=== PATIENT | male | born 1990 | race Caucasian/White ===

== ENCOUNTER 2017-03-26 01:28 | Emergency (ER) | payer MEDICAID ==
[2012-08-24 17:57] VITALS: BMI 19.5
[2017-03-26 02:07] LABS: BASOPHILS 0.1 % (0-2); EOSINOPHILS 1.7 % (0-7); HEMATOCRIT 37.6 % (42.0-54.0); HEMOGLOBIN 12.8 g/dL (13.5-17.5); IMMATURE GRANULOCYTES 0.2 % (0-5); MCH 29.6 pg (26.0-34.0); MCV 86.8 fL (80.0-100.0); MEAN PLATELET VOLUME 9.6 fL (7.4-10.4); MONOCYTES 12.7 % (2-11); NEUTROPHILS 71.3 % (40-80); PLATELET COUNT 334 10x3/uL (130-400); RBC 4.33 10x6/uL (4.20-6.10); RDW 12.6 % (11.5-14.5); WBC 14.4 10x3/uL (4.8-10.8)
[2017-03-26 02:23] LABS: ALBUMIN 3.2 g/dL (3.4-5.0); ALKALINE PHOSPHATASE 86 U/L (46-116); ALT (SGPT) 25 U/L (10-68); CALC OSMOLALITY 272 mosm/kg (275-300); CARBON DIOXIDE 30.9 mmol/L (21.0-32.0); CHLORIDE - SERUM 98 mmol/L (98-107); CREATININE - SERUM 0.8 mg/dL (0.6-1.3); GLUCOSE 105 mg/dL (74-106); POTASSIUM - SERUM 3.1 mmol/L (3.5-5.1); PROTEIN - SERUM 7.3 g/dL (6.4-8.2); SODIUM 137 mmol/L (136-145); UREA NITROGEN 9 mg/dL (7-18); eGFR NON AFRICAN AMERICAN > 90 mL/min (90-120)
[2017-03-26 02:34] LABS: APPEARANCE CLEAR (CLEAR); COLOR YELLOW (YELLOW)
[2017-03-26 02:35] LABS: BILIRUBIN NEGATIVE (NEGATIVE); GLUCOSE NEGATIVE (NEGATIVE); KETONE NEGATIVE (NEGATIVE); LEUKOCYTE ESTERASE NEGATIVE (NEGATIVE); NITRITE NEGATIVE (NEGATIVE); PROTEIN NEGATIVE (NEGATIVE); UROBILINOGEN NORMAL (NORMAL)
[2017-03-26 02:49] LABS: UDS - AMPHET POSITIVE QUAL (NEGATIVE); UDS - BARB NEGATIVE QUAL (NEGATIVE); UDS - BENZO NEGATIVE QUAL (NEGATIVE); UDS - COCAINE NEGATIVE QUAL (NEGATIVE); UDS - METH NEGATIVE QUAL (NEGATIVE); UDS - OPIATE NEGATIVE QUAL (NEGATIVE); UDS - PCP NEGATIVE QUAL (NEGATIVE); UDS - THC POSITIVE QUAL (NEGATIVE)
== END 2017-03-26 03:54 | disposition home or self-care (01) ==
LOC: D.ER 01:28
PROVIDERS: Emergency Medicine
DX: J15.9 Unspecified bacterial pneumonia (principal); F17.200 Nicotine dependence, unspecified, uncomplicated

== ENCOUNTER 2017-07-08 01:01 | Emergency (ER) | payer MEDICAID ==
[2012-08-24 17:57] VITALS: BMI 19.5
[2017-07-08 01:40] LABS: BASOPHILS 0.1 % (0-2); EOSINOPHILS 0.7 % (0-7); HEMATOCRIT 38.1 % (42.0-54.0); HEMOGLOBIN 12.7 g/dL (13.5-17.5); IMMATURE GRANULOCYTES 0.3 % (0-5); LYMPHOCYTES 13.8 % (15-50); MCH 28.9 pg (26.0-34.0); MCHC 33.3 g/dL (31.0-37.0); MCV 86.8 fL (80.0-100.0); MEAN PLATELET VOLUME 9.6 fL (7.4-10.4); MONOCYTES 14.4 % (2-11); NEUTROPHILS 70.7 % (40-80); PLATELET COUNT 272 10x3/uL (130-400); RBC 4.39 10x6/uL (4.20-6.10); RDW 13.1 % (11.5-14.5); WBC 14.8 10x3/uL (4.8-10.8)
[2017-07-08 02:19] LABS: UDS - AMPHET POSITIVE QUAL (NEGATIVE); UDS - BARB NEGATIVE QUAL (NEGATIVE); UDS - BENZO NEGATIVE QUAL (NEGATIVE); UDS - COCAINE NEGATIVE QUAL (NEGATIVE); UDS - METH NEGATIVE QUAL (NEGATIVE); UDS - OPIATE NEGATIVE QUAL (NEGATIVE); UDS - PCP NEGATIVE QUAL (NEGATIVE); UDS - THC POSITIVE QUAL (NEGATIVE)
== END 2017-07-08 02:07 | disposition home or self-care (01) ==
LOC: D.ER 01:01
PROVIDERS: Emergency Medicine
DX: J15.9 Unspecified bacterial pneumonia (principal); F17.200 Nicotine dependence, unspecified, uncomplicated

== ENCOUNTER 2018-01-08 18:32 | Emergency (ER) | payer MEDICAID ==
[2012-08-24 17:57] VITALS: BMI 19.5
[2018-01-08 21:26] LABS: APPEARANCE CLEAR (CLEAR); BILIRUBIN NEGATIVE (NEGATIVE); COLOR YELLOW (YELLOW); GLUCOSE NEGATIVE (NEGATIVE); KETONE SMALL mg/dL (NEGATIVE); NITRITE NEGATIVE (NEGATIVE); PROTEIN NEGATIVE (NEGATIVE); UROBILINOGEN NORMAL (NORMAL)
[2018-01-08 21:30] LABS: UDS - AMPHET POSITIVE QUAL (NEGATIVE); UDS - BARB NEGATIVE QUAL (NEGATIVE); UDS - BENZO NEGATIVE QUAL (NEGATIVE); UDS - COCAINE NEGATIVE QUAL (NEGATIVE); UDS - OPIATE POSITIVE QUAL (NEGATIVE); UDS - PCP NEGATIVE QUAL (NEGATIVE); UDS - THC NEGATIVE QUAL (NEGATIVE)
[2018-01-18] MEDS ORDERED: PERCOCET 5-3251 TAB PO (11:46)
[2018-01-18] MEDS ORDERED: IBUPROFEN800 MG PO (11:46)
== END 2018-01-08 22:15 | disposition home or self-care (01) ==
LOC: D.ER 18:32
PROVIDERS: Physician Assistant Medical
DX: S52.541A Smith's fracture of right radius, initial encounter for closed fracture (principal); Y93.83 Activity, rough housing and horseplay; Y93.89 Activity, other specified; Y92.019 Unspecified place in single-family (private) house as the place of occurrence of the external cause; F17.200 Nicotine dependence, unspecified, uncomplicated

== ENCOUNTER 2018-01-15 23:39 | Emergency (ER) | payer MEDICAID ==
[2012-08-24 17:57] VITALS: BMI 19.5
[2018-01-18] MEDS ORDERED: PERCOCET 5-3251 TAB PO (11:46)
[2018-01-18] MEDS ORDERED: IBUPROFEN800 MG PO (11:46)
[2018-02-13 14:05] VITALS: BMI 20.4
== END 2018-01-16 00:51 | disposition home or self-care (01) ==
LOC: D.ER 23:39
DX: S62.101D Fracture of unspecified carpal bone, right wrist, subsequent encounter for fracture with routine healing (principal); X58.XXXD Exposure to other specified factors, subsequent encounter

== ENCOUNTER 2018-01-26 07:08 | Day surgery (SDC) | payer MEDICAID ==
[~2018-01-26] VITALS: Ht 175.3 cm; Wt 62.6 kg
--- NOTE | ~2018-01-26 | OP ---
PATIENT NAME: JONATHAN NESS MEDICAL RECORD: [id number] :86 LOCATION:D.OPS ADMISSION DATE: SURGEON: RERE COBIAN MD DATE OF OPERATION: 01/26/2018 PREOPERATIVE DIAGNOSES: 1. Volar Ruiz's fracture of the right wrist. 2. Acute carpal tunnel syndrome. POSTOPERATIVE DIAGNOSES: 1. Volar Ruiz's fracture of the right wrist. 2. Acute carpal tunnel syndrome. PROCEDURE: 1. Open reduction and internal fixation of distal radius fracture. 2. Carpal tunnel release. ANESTHESIA: General. INTRAOPERATIVE COMPLICATIONS: None. SUMMARY OF PATHOLOGIC FINDINGS: The patient had a fracture of the volar aspect of his distal radius, which was displaced requiring internal fixation. OPERATIVE SUMMARY IN DETAIL: After obtaining the appropriate preoperative orthopedic surgery consent as well as anesthetic consultation, evaluation, and clearance, the patient was brought to the operating room and placed on the operating table in supine position. After general laryngeal mask was administered, tourniquet was placed on the proximal aspect of the right lower extremity. Right lower extremity was then prepped and draped in routine sterile fashion. The leg was elevated and exsanguinated, tourniquet was inflated to 250 mmHg. Volar approach of Tony was utilized including the mid palmar carpal tunnel approach. Incision was taken down to the flexor carpi radialis and then very careful dissection of the carpal tunnel was carried out under direct visualization of the median nerve to release the median nerve and debride the hematoma in the carpal canal. Having completed this, dissection was carried down to the fracture itself, which was completely visualized. After all hematoma and early fibrous tissue was removed, it was held in a reduced position. Plate was then applied and provisionally pinned under fluoroscopy to be sure that was in appropriate position. Serial and sequential drill and fill using combination of both locking and compression screws were utilized to stabilize the fragment. When this was completed, AP and lateral views were submitted to radiology for final evaluation. Wound was copiously irrigated and closed with 2-0 Vicryl followed 4-0 Prolene in a running fashion. A volar splint was applied. Tourniquet was deflated. The patient was awakened and taken to recovery room in stable condition. All final needle and sponge counts were correct. TRANSINT:[id number] Voice Confirmation ID: [id number] DOCUMENT ID: [id number] OPERATIVE REPORT [id number] JONATHAN NESS MD, RERE RAMIREZ at 1520 CC: [id number] DICTATION DATE: 02/02/18 0844 CAREER DEVELOPMENT MANAGER: 02/02/18 1012 [facility] 01/26/18 [place] [id number] [place] [id number]
[~2018-01-26 07:08] MED LIST: IBUPROFEN800 MG PO; PERCOCET 5-3251 TAB PO
[2018-01-26 07:47] VITALS: BP 123/67; Ht 175.3 cm; Wt 62.6 kg
[2018-01-26] MEDS ORDERED: HYDROCODONE-APA1 TAB PO (12:58)
== END 2018-01-26 13:45 | disposition home or self-care (01) ==
LOC: D.OPS 07:08 → D.PAN 10:30 → D.OPS 13:45
DX: S52.501A Unspecified fracture of the lower end of right radius, initial encounter for closed fracture (principal); F17.200 Nicotine dependence, unspecified, uncomplicated; Y09 Assault by unspecified means

== ENCOUNTER 2018-01-31 01:41 | Emergency (ER) | payer MEDICAID ==
[2018-01-26 07:47] VITALS: BMI 20.4
[~2018-01-31 01:41] MED LIST changes: +HYDROCODONE-APA1 TAB PO
== END 2018-01-31 02:29 | disposition home or self-care (01) ==
LOC: D.ER 01:41
DX: G89.18 Other acute postprocedural pain (principal)

== ENCOUNTER 2018-02-13 12:52 | Day surgery (SDC) | payer MEDICAID ==
[~2018-02-13] VITALS: Ht 175.3 cm; Wt 62.6 kg
--- NOTE | ~2018-02-13 | OP ---
PATIENT NAME: JONATHAN NESS MEDICAL RECORD: [id number] :88 LOCATION:[facility] ADMISSION DATE: SURGEON: RERE COBIAN MD DATE OF OPERATION: 02/13/2018 PREOPERATIVE DIAGNOSIS: Failure of open reduction internal fixation of the right wrist. POSTOPERATIVE DIAGNOSIS: Failure of open reduction internal fixation of the right wrist. PROCEDURE: Revision ORIF of the right wrist. SURGEON: Rere Cobian MD ANESTHESIA: General. INTRAOPERATIVE COMPLICATIONS: Essentially none. SUMMARY OF PATHOLOGIC FINDINGS: The patient although denied any fall, clearly had significant displacement of the internal fixation at his 1st postop appointment. He was brought back for revision surgery today. OPERATIVE SUMMARY IN DETAIL: After obtaining the appropriate orthopedic surgery consent as well as anesthetic consultation, evaluation and clearance, the patient was brought to the operating room and placed in the operating table in supine position. After general laryngeal mask was administered, tourniquet placed on the proximal aspect of the right upper extremity. Right upper extremity was then prepped and draped in routine sterile fashion. The arm was elevated and exsanguinated, tourniquet inflated to 250 mmHg. The previously placed sutures, which had not been removed from the first operation, were taken down. Volar dissection was carried out again without going to the carpal tunnel. FCR was identified as was the median nerve. The plate was readily identifiable and was removed. The fragments had shifted distally and the patient had a substantial volar tilt to the point of a subluxation of the wrist. At this point, all loose hardware had been removed, the fracture was re-reduced and a buttress style plate was put on, that is the volar plate was contoured to give more of a buttress and forced the volar tilt back to a more normal angle. This did not, however, caused the volar tilt to come back to normal angle. A dorsal dissection was therefore carried out. Dissection was carried straight down and very gentle separation of the extensor retinaculum was done. The periosteum was then identified. A small wedge of bone was removed at this point, approximately 7-8 degrees and while the distal screws on the volar aspect of the plate were not on, the wrist was held in a reduced position while a dorsal plate was placed in compression over the bone to hold it together, all done under fluoroscopic guidance. This resulted in reproducing the patient's normal volar tilt and normal seating of the scaphoid and lunate. Having completed this, attention was returned to the volar aspect. Short locking screws were then placed in the volar buttress plate. A small rent in the capsule was then repaired with 2-0 FiberWire. Having completed this, the wounds were all copiously irrigated and closed with 2-0 Vicryl followed by skin elvis. Sterile dressings were applied. The tourniquet was deflated. The patient was awakened, taken to recovery room in stable condition. All final needle and sponge counts were correct. OPERATIVE REPORT [id number] JONATHAN NESS MAGNUS J TRANSINT:[id number] Voice Confirmation ID: [id number] DOCUMENT ID: [id number] ARANZA BUCKNER, RERE RAMIREZ at 1341 CC: [id number] DICTATION DATE: 02/13/182224 GEOLOGICAL DRAFTER: 02/14/18 0838 [facility] 02/14/18 [place] [id number] [place] [id number]
[2018-02-13 14:05] VITALS: BP 117/77; Ht 175.3 cm; Wt 62.6 kg
[2018-02-13 21:24] VITALS: BP 129/95
[2018-02-14 00:40] VITALS: BP 134/84
== END 2018-02-14 03:07 | disposition home or self-care (01) ==
LOC: D.OPS 12:52 → D.MS 20:33 → D.OPS 02-14 03:07
DX: T84.122A Displacement of internal fixation device of bone of right forearm, initial encounter (principal); S63.011A Subluxation of distal radioulnar joint of right wrist, initial encounter; X58.XXXA Exposure to other specified factors, initial encounter

== ENCOUNTER 2019-03-10 10:10 | Emergency (ER) | payer MEDICAID ==
[2019-03-10 10:15] VITALS: BMI 21.1
[2019-03-10] MEDS ORDERED: KEFLEX250 MG PO (10:16)
[2019-03-10] MEDS ORDERED: CLEOCIN HCL300 MG PO (11:28)
[2019-03-10] MEDS ORDERED: OMNICEF250 MG/5 M PO (11:28)
[2019-03-10] MEDS ORDERED: PHENERGAN DM SYR5 ML PO (11:28)
[2019-03-10] MEDS ORDERED: ALBUTEROL SULF8.5 GM INH (11:28)
[2019-03-10 11:33] VITALS: BP 113/73
== END 2019-03-10 11:41 | disposition home or self-care (01) ==
LOC: D.ER 10:10
DX: J18.9 Pneumonia, unspecified organism (principal); R05 Cough

== ENCOUNTER 2019-04-14 22:58 | Emergency (ER) | payer MEDICAID ==
[~2019-04-14] VITALS: Ht 175.3 cm; Wt 64.5 kg
[~2019-04-14 22:58] MED LIST changes: +ALBUTEROL SULF8.5 GM INH; +CLEOCIN HCL300 MG PO; +KEFLEX250 MG PO; +OMNICEF250 MG/5 M PO; +PHENERGAN DM SYR5 ML PO
[2019-04-14 23:04] VITALS: Ht 175.3 cm; Wt 64.5 kg
[2019-04-15 02:01] LABS: UDS - AMPHET POSITIVE QUAL (NEGATIVE); UDS - BARB NEGATIVE QUAL (NEGATIVE); UDS - BENZO NEGATIVE QUAL (NEGATIVE); UDS - COCAINE NEGATIVE QUAL (NEGATIVE); UDS - OPIATE NEGATIVE QUAL (NEGATIVE); UDS - PCP NEGATIVE QUAL (NEGATIVE); UDS - THC POSITIVE QUAL (NEGATIVE)
[2019-04-15 02:30] VITALS: BP 108/62
== END 2019-04-15 02:31 | disposition home or self-care (01) ==
LOC: D.ER 22:58
PROVIDERS: Emergency Medicine
DX: G62.9 Polyneuropathy, unspecified (principal)

== ENCOUNTER 2019-05-21 03:53 | Emergency (ER) | payer MEDICAID ==
[~2019-05-21] VITALS: Ht 175.3 cm; Wt 64.4 kg
[2019-05-21 03:59] VITALS: Ht 175.3 cm; Wt 64.4 kg
[2019-05-21] MEDS ORDERED: KEFLEX500 MG PO (04:05)
[2019-05-21] MEDS ORDERED: ATARAX 25 MG TA25 MG PO (04:05)
[2019-05-21] MEDS ORDERED: CLEOCIN HCL300 MG PO (04:05)
[2019-05-21 04:16] VITALS: BP 132/77
== END 2019-05-21 04:18 | disposition home or self-care (01) ==
LOC: D.ER 03:53
DX: L25.9 Unspecified contact dermatitis, unspecified cause (principal); L03.116 Cellulitis of left lower limb; L03.115 Cellulitis of right lower limb

== ENCOUNTER 2019-05-23 14:17 | Emergency (ER) | payer MEDICAID ==
[~2019-05-23] VITALS: Ht 175.3 cm; Wt 64.5 kg
[~2019-05-23 14:17] MED LIST changes: +ATARAX 25 MG TA25 MG PO; +KEFLEX500 MG PO
[2019-05-23 14:20] VITALS: Ht 175.3 cm; Wt 64.5 kg
[2019-05-23 15:41] LABS: BASOPHILS 0.2 % (0-2); EOSINOPHILS 7.9 % (0-7); HEMATOCRIT 36.1 % (42.0-54.0); HEMOGLOBIN 12.3 g/dL (13.5-17.5); IMMATURE GRANULOCYTES 0.2 % (0-5); LYMPHOCYTES 20.9 % (15-50); MCH 28.5 pg (26.0-34.0); MCHC 34.1 g/dL (31.0-37.0); MCV 83.6 fL (80.0-100.0); MEAN PLATELET VOLUME 9.5 fL (7.4-10.4); MONOCYTES 11.7 % (2-11); NEUTROPHILS 59.1 % (40-80); PLATELET COUNT 282 10x3/uL (130-400); RBC 4.32 10x6/uL (4.20-6.10); WBC 9.4 10x3/uL (4.8-10.8)
[2019-05-23 15:58] LABS: ALBUMIN 2.9 g/dL (3.4-5.0); ALKALINE PHOSPHATASE 95 U/L (46-116); ALT (SGPT) 15 U/L (10-68); BILIRUBIN - TOTAL 0.21 mg/dL (0.2-1.3); CALC OSMOLALITY 278 mosm/kg (275-300); CALCIUM 8.4 mg/dL (8.5-10.1); CARBON DIOXIDE 31.1 mmol/L (21.0-32.0); CHLORIDE - SERUM 103 mmol/L (98-107); CREATININE - SERUM 0.9 mg/dL (0.6-1.3); GLUCOSE 124 mg/dL (74-106); POTASSIUM - SERUM 3.8 mmol/L (3.5-5.1); PROTEIN - SERUM 6.6 g/dL (6.4-8.2); SODIUM 139 mmol/L (136-145); UREA NITROGEN 12 mg/dL (7-18); eGFR NON AFRICAN AMERICAN > 90 mL/min (90-120)
[2019-05-23] MEDS ORDERED: KENALOG 0.1 % 115 GM TOPICAL (16:09)
[2019-05-23] MEDS ORDERED: PREDNISONE20 MG PO (16:09)
[2019-05-23 16:43] VITALS: BP 117/75
== END 2019-05-23 16:45 | disposition home or self-care (01) ==
LOC: D.ER 14:17
PROVIDERS: Family Medicine
DX: R60.0 Localized edema (principal); L23.7 Allergic contact dermatitis due to plants, except food

== ENCOUNTER 2019-10-01 03:55 | Emergency (ER) | payer MEDICAID ==
[~2019-10-01] VITALS: Ht 175.3 cm; Wt 64.5 kg
[~2019-10-01 03:55] MED LIST changes: +KENALOG 0.1 % 115 GM TOPICAL; +PREDNISONE20 MG PO
[2019-10-01 03:58] VITALS: Ht 175.3 cm; Wt 64.5 kg
[2019-10-01] MEDS ORDERED: BUPRENORPHIN-N1 EACH SL (04:00)
[2019-10-01] MEDS ORDERED: FEXOFENADINE H180 MG PO (04:24)
[2019-10-01] MEDS ORDERED: ALBUTEROL SULF8.5 GM INH (04:24)
[2019-10-01] MEDS ORDERED: KEFLEX500 MG PO (04:24)
[2019-10-01 04:40] VITALS: BP 118/75
== END 2019-10-01 04:40 | disposition home or self-care (01) ==
LOC: D.ER 03:55
DX: J32.9 Chronic sinusitis, unspecified (principal); J40 Bronchitis, not specified as acute or chronic; Z72.0 Tobacco use

== ENCOUNTER 2019-11-21 06:07 | Emergency (ER) | payer MEDICAID ==
[~2019-11-21] VITALS: Ht 175.3 cm; Wt 64.5 kg
[~2019-11-21 06:07] MED LIST changes: +BUPRENORPHIN-N1 EACH SL; +FEXOFENADINE H180 MG PO
[2019-11-21 06:16] VITALS: BP 134/85; Ht 175.3 cm; Wt 64.5 kg
[2019-11-21] MEDS ORDERED: MONODOX100 MG PO (07:31)
== END 2019-11-21 07:58 | disposition home or self-care (01) ==
LOC: D.ER 06:07
DX: L73.1 Pseudofolliculitis barbae (principal)

== ENCOUNTER 2020-03-31 21:06 | Emergency (ER) | payer MEDICAID ==
[~2020-03-31] VITALS: Ht 175.3 cm; Wt 63.2 kg
[~2020-03-31 21:06] MED LIST changes: +MONODOX100 MG PO
[2020-03-31 21:18] VITALS: Ht 175.3 cm; Wt 63.2 kg
[2020-03-31 22:26] LABS: BASOPHILS 0.1 % (0-2); EOSINOPHILS 0.4 % (0-7); HEMATOCRIT 39.2 % (42.0-54.0); HEMOGLOBIN 12.9 g/dL (13.5-17.5); IMMATURE GRANULOCYTES 0.3 % (0-5); LYMPHOCYTES 15.6 % (15-50); MCH 29.5 pg (26.0-34.0); MCHC 32.9 g/dL (31.0-37.0); MCV 89.5 fL (80.0-100.0); MEAN PLATELET VOLUME 10.3 fL (7.4-10.4); MONOCYTES 14.4 % (2-11); NEUTROPHILS 69.2 % (40-80); PLATELET COUNT 271 10x3/uL (130-400); RBC 4.38 10x6/uL (4.20-6.10)
[2020-03-31 22:37] LABS: CALC OSMOLALITY 274 mosm/kg (275-300); CALCIUM 8.7 mg/dL (8.5-10.1); CARBON DIOXIDE 27.4 mmol/L (21.0-32.0); CHLORIDE - SERUM 99 mmol/L (98-107); GLUCOSE 113 mg/dL (74-106); POTASSIUM - SERUM 3.8 mmol/L (3.5-5.1); SODIUM 136 mmol/L (136-145); UREA NITROGEN 18 mg/dL (7-18); eGFR NON AFRICAN AMERICAN > 90 mL/min (90-120)
[2020-03-31 22:43] LABS: ALBUMIN 3.4 g/dL (3.4-5.0); ALKALINE PHOSPHATASE 73 U/L (30-120); ALT (SGPT) 35 U/L (10-68); BILIRUBIN - TOTAL 0.27 mg/dL (0.2-1.3); C-REACTIVE PROTEIN 15.3 mg/dL (0.0-0.9); PROTEIN - SERUM 6.9 g/dL (6.4-8.2)
[2020-03-31 22:57] LABS: BILIRUBIN NEGATIVE (NEGATIVE); GLUCOSE NEGATIVE (NEGATIVE); KETONE NEGATIVE (NEGATIVE); NITRITE NEGATIVE (NEGATIVE); UROBILINOGEN NORMAL (NORMAL)
[2020-03-31 23:05] LABS: UDS - AMPHET NEGATIVE QUAL (NEGATIVE); UDS - BARB NEGATIVE QUAL (NEGATIVE); UDS - BENZO NEGATIVE QUAL (NEGATIVE); UDS - COCAINE NEGATIVE QUAL (NEGATIVE); UDS - OPIATE NEGATIVE QUAL (NEGATIVE); UDS - PCP NEGATIVE QUAL (NEGATIVE); UDS - THC POSITIVE QUAL (NEGATIVE)
[2020-04-01] MEDS ORDERED: LEVAQUIN750 MG PO (00:24)
[2020-04-01 01:53] VITALS: BP 133/83
[2020-04-02] MEDS ORDERED: ZOFRAN ODT4 MG/UDTAB PO (13:39)
[2020-04-03] MEDS ORDERED: LEVAQUIN750 MG PO (15:53)
== END 2020-04-01 01:53 | disposition home or self-care (01) ==
LOC: D.ER 21:06
PROVIDERS: Family Medicine
DX: R50.9 Fever, unspecified (principal); J02.9 Acute pharyngitis, unspecified; R52 Pain, unspecified; F19.10 Other psychoactive substance abuse, uncomplicated; R06.02 Shortness of breath; Z72.0 Tobacco use

== ENCOUNTER 2020-04-02 11:30 | Emergency (ER) | payer MEDICAID ==
[~2020-04-02] VITALS: Ht 175.3 cm; Wt 63.2 kg
[~2020-04-02 11:30] MED LIST changes: +LEVAQUIN750 MG PO
[2020-04-02 11:35] VITALS: Ht 175.3 cm; Wt 63.2 kg
[2020-04-02 12:05] LABS: BASOPHILS 0.1 % (0-2); EOSINOPHILS 0.1 % (0-7); HEMATOCRIT 42.5 % (42.0-54.0); HEMOGLOBIN 13.9 g/dL (13.5-17.5); IMMATURE GRANULOCYTES 0.2 % (0-5); LYMPHOCYTES 8.6 % (15-50); MCH 29.1 pg (26.0-34.0); MCHC 32.7 g/dL (31.0-37.0); MCV 89.1 fL (80.0-100.0); MEAN PLATELET VOLUME 10.2 fL (7.4-10.4); MONOCYTES 16.6 % (2-11); NEUTROPHILS 74.4 % (40-80); PLATELET COUNT 263 10x3/uL (130-400); RBC 4.77 10x6/uL (4.20-6.10); RDW 12.8 % (11.5-14.5); WBC 16.6 10x3/uL (4.8-10.8)
[2020-04-02 12:21] LABS: MONO NEGATIVE (NEGATIVE)
[2020-04-02 12:30] LABS: CALC OSMOLALITY 258 mosm/kg (275-300); CALCIUM 8.7 mg/dL (8.5-10.1); CARBON DIOXIDE 27.8 mmol/L (21.0-32.0); CHLORIDE - SERUM 94 mmol/L (98-107); CREATININE - SERUM 1.1 mg/dL (0.6-1.3); GLUCOSE 96 mg/dL (74-106); POTASSIUM - SERUM 3.8 mmol/L (3.5-5.1); SODIUM 130 mmol/L (136-145); eGFR NON AFRICAN AMERICAN 83 mL/min (90-120)
[2020-04-02 12:31] LABS: UREA NITROGEN 8 mg/dL (7-18)
[2020-04-02 12:39] LABS: BACTERIA FEW /hpf (NEGATIVE); BILIRUBIN NEGATIVE (NEGATIVE); EPITHELIAL CELLS OCC /hpf (0-5); GLUCOSE NEGATIVE (NEGATIVE); KETONE NEGATIVE (NEGATIVE); NITRITE NEGATIVE (NEGATIVE); RED CELLS - URINE OCC /hpf (0-5); UROBILINOGEN 4 mg/dL (NORMAL); WHITE CELLS - URINE RARE /hpf (NEGATIVE)
[2020-04-02 12:42] LABS: ALBUMIN 3.5 g/dL (3.4-5.0); ALKALINE PHOSPHATASE 87 U/L (30-120); ALT (SGPT) 35 U/L (10-68); BILIRUBIN - TOTAL 0.43 mg/dL (0.2-1.3); PROTEIN - SERUM 7.3 g/dL (6.4-8.2)
[2020-04-02] MEDS ORDERED: ZOFRAN ODT4 MG/UDTAB PO (13:39)
[2020-04-02 13:49] VITALS: BP 118/73
[2020-04-03 11:10] LABS: EBV - NUCLEAR ANTIGEN AB IGG >600.0 U/mL (0.0-17.9); EBV VIRAL CAPSID AB IGG 24.9 U/mL (0.0-17.9); EBV VIRAL CAPSID AB IGM <36.0 U/mL (0.0-35.9)
[2020-04-03] MEDS ORDERED: LEVAQUIN750 MG PO (15:53)
== END 2020-04-02 13:50 | disposition home or self-care (01) ==
LOC: D.ER 11:30
PROVIDERS: Family Medicine
DX: R50.9 Fever, unspecified (principal); E87.1 Hypo-osmolality and hyponatremia; D72.829 Elevated white blood cell count, unspecified; R11.2 Nausea with vomiting, unspecified; J02.9 Acute pharyngitis, unspecified; M54.2 Cervicalgia; Z72.0 Tobacco use

== ENCOUNTER → 2020-07-21 | Emergency (ER) | payer MEDICAID ==
[~2020-07-21] VITALS: Ht 175.3 cm; Wt 64.5 kg
[~2020-07-21] MED LIST changes: +CORTISPORIN OP3.5 G1 RIGHT EYE; +ZOFRAN ODT4 MG/UDTAB PO
[2020-07-21 20:57] VITALS: BP 134/80; Ht 175.3 cm; Wt 64.5 kg
== END | disposition home or self-care (01) ==
LOC: D.ER 20:47
DX: S05.01XA Injury of conjunctiva and corneal abrasion without foreign body, right eye, initial encounter (principal); X58.XXXA Exposure to other specified factors, initial encounter